=== PATIENT | male | born 1955 | race Two or more races ===

== ENCOUNTER 2018-01-08 11:56 | Inpatient (IN) | payer MEDICAID ==
[2018-01-08] MEDS: LIDOCAINE 1%/EPI 30 ML INJ INJ ×2 (12:46→13:02)
[2018-01-08] MEDS: ONDANSETRON 4 MG INJ IV (13:09)
[2018-01-08] MEDS: ACETAMINOPHEN 325 MG TAB PO (13:09)
[2018-01-08] MEDS: morphine 4 MG/ML VIAL IV (13:09)
[2018-01-08] MEDS: CEFEPIME 2GM/50 ML (PMX) 50 ML IVPB (13:17)
[2018-01-08] MEDS: SODIUM CHLORIDE 0.9% 1L BAG IV* (13:18)
[2018-01-08 13:35] LABS: ADD MAN DIFF? NO
[2018-01-08 13:59] LABS: SYN FLD CRYSTALS NO CRYSTALS SEEN (None seen)
[2018-01-08 14:01] LABS: INR 0.94; PROTIME 12.7 Sec (11.9-14.9)
[2018-01-08 14:02] LABS: PARTIAL THROMBOPLASTIN TIME 26.4 Sec (25.0-35.0)
[2018-01-08 14:03] LABS: SYN FLD CLARITY CLOUDY; SYN FLD COLOR YELLOW
[2018-01-08 14:05] LABS: SYN FLD SOURCE RT KNEE
[2018-01-08] MEDS: VANCOMYCIN 1 GM (PMX) 250 ML IVPB (14:06)
[2018-01-08 14:07] LABS: ALANINE AMINOTRANSFERASE 41 IU/L (13-69); ALBUMIN 3.6 g/dl (3.3-4.9); ALBUMIN/GLOBULIN RATIO 1.16; ALKALINE PHOSPHATASE 116 IU/L (42-121); ANION GAP 13 (8-16); ASPARTATE AMINO TRANSFERASE 19 IU/L (15-46); BILIRUBIN,INDIRECT 1.1 mg/dl (0-1.1); BILIRUBIN,TOTAL 1.1 mg/dl (0.2-1.3); BLOOD UREA NITROGEN 18 mg/dl (7-20); C-REACTIVE PROTEIN 4.5 mg/dl (0.0-0.9); CALCIUM 8.4 mg/dl (8.4-10.2); CARBON DIOXIDE 30 mmol/L (21-31); CHLORIDE 99 mmol/L (97-110); CREATININE 0.99 mg/dl (0.61-1.24); GLUCOSE 162 mg/dl (70-220); SODIUM 138 mmol/L (135-144); TOTAL PROTEIN 6.7 g/dl (6.1-8.1)
[2018-01-08 14:26] LABS: TROPONIN-I < 0.012 ng/ml (0.00-0.12)
[2018-01-08 14:33] LABS: FLUID GLUCOSE 188 mg/dl; FLUID TYPE SYNOVIAL FLUID
[2018-01-08 14:37] LABS: WHITE BLOOD COUNT 15.4 10^3/ul (4.8-10.8)
[2018-01-08 14:37] LABS: BASOPHILS % 0.3 % (0.0-2.0); EOSINOPHILS # 0.3 10^3/ul (0.0-0.5); EOSINOPHILS % 1.8 % (0.0-7.0); HEMATOCRIT 49.1 % (42.0-52.0); HEMOGLOBIN 16.7 g/dl (14.0-18.0); LYMPHOCYTES # 1.4 10^3/ul (0.8-2.9); LYMPHOCYTES % 8.9 % (15.0-51.0); MEAN CORPUSCULAR HEMOGLOBIN 30.7 pg (29.0-33.0); MEAN CORPUSCULAR VOLUME 90.3 fl (82.0-101.0); MEAN PLATELET VOLUME 9.9 fl (7.4-10.4); MONOCYTE # 0.8 10^3/ul (0.3-0.9); MONOCYTES % 5.3 % (0.0-11.0); NEUTROPHIL # 12.8 10^3/ul (1.6-7.5); NEUTROPHILS % 83.2 % (39.0-77.0); PLATELET COUNT 221 10^3/UL (140-415); RED BLOOD COUNT 5.44 10^6/ul (4.70-6.10); RED CELL DISTRIBUTION WIDTH 13.1 % (11.5-14.5)
[2018-01-08 14:54] LABS: ADD UMIC NO; SYN FLD MN % 14.9 &; SYN FLD PMN % 85.1 % (0.0-25.0); SYN FLD WBC 8432 /cmm (0-150); UR ASCORBIC ACID NEGATIVE (NEGATIVE); UR BILIRUBIN (Dip) NEGATIVE (NEGATIVE); UR BLOOD (Dip) NEGATIVE (NEGATIVE); UR CLARITY CLEAR (CLEAR); UR COLOR YELLOW (YELLOW); UR GLUCOSE (Dip) NEGATIVE (NEGATIVE); UR KETONES (Dip) NEGATIVE (NEGATIVE); UR LEUKOCYTE ESTERASE (Dip) NEGATIVE Leu/ul (NEGATIVE); UR NITRITE (Dip) NEGATIVE (NEGATIVE); UR SPECIFIC GRAVITY (Dip) 1.013 (1.003-1.030); UR TOTAL PROTEIN (Dip) NEGATIVE (NEGATIVE); UR UROBILINOGEN (Dip) NEGATIVE (NEGATIVE)
[2018-01-08 14:57] LABS: ERYTHROCYTE SEDIMENTATION RATE 3 mm/Hr (0-20)
[2018-01-08 15:29] LABS: FLUID TOTAL PROTEIN 3.1 g/dl
[2018-01-08] MEDS ORDERED: ACETAMINOPHEN 325 MG TAB PO ×2 (15:30→16:00)
[2018-01-08] MEDS ORDERED: ONDANSETRON 4 MG INJ IV ×2 (15:30→16:00)
[2018-01-08] MEDS ORDERED: NACL 0.9% 3 ML SYG IV (16:00)
[2018-01-08] MEDS ORDERED: BISACODYL 10 MG SUPP PR (16:00)
[2018-01-08] MEDS ORDERED: morphine 2 MG INJ IV (16:00)
[2018-01-08] MEDS ORDERED: MAGNESIUM HYDROXIDE 30ML CUP PO (16:00)
[2018-01-08] MEDS ORDERED: DOCUSATE SODIUM 100 MG CAP PO (16:00)
[2018-01-08] MEDS ORDERED: HYDROCODONE/APAP (5/325) TAB PO (16:00)
[2018-01-08] MEDS ORDERED: VANCOMYCIN IV PER PHARMACY XX (16:30)
[2018-01-08] MEDS ORDERED: morphine LIQ (10 MG/5 ML) CUP PO (16:30)
[2018-01-08 16:47] LABS: URIC ACID 4.6 mg/dl (3.1-7.9)
[2018-01-08 17:39] LABS: LACTIC ACID 1.4 mmol/L (0.5-2.0)
[2018-01-08] MEDS: HYDROCODONE/APAP (5/325) TAB PO (19:49)
[2018-01-09] MEDS: VANCOMYCIN 1.25 GM in SOD CHLORIDE 0.9% 250 ML IVPB ×3 (00:42→23:51)
[2018-01-09] MEDS ORDERED: PANTOPRAZOLE (EC) 40 MG TAB PO (04:48)
[2018-01-09] MEDS: PANTOPRAZOLE (EC) 40 MG TAB PO (05:59)
[2018-01-09 06:10] LABS: ADD MAN DIFF? NO
[2018-01-09 06:19] LABS: WHITE BLOOD COUNT 12.7 10^3/ul (4.8-10.8)
[2018-01-09 06:19] LABS: BASOPHILS % 0.2 % (0.0-2.0); EOSINOPHILS # 0.5 10^3/ul (0.0-0.5); EOSINOPHILS % 3.8 % (0.0-7.0); HEMOGLOBIN 15.6 g/dl (14.0-18.0); LYMPHOCYTES # 1.7 10^3/ul (0.8-2.9); MEAN CORPUSCULAR HEMOGLOBIN 30.6 pg (29.0-33.0); MEAN CORPUSCULAR HGB CONC 33.2 g/dl (32.0-37.0); MEAN CORPUSCULAR VOLUME 92.2 fl (82.0-101.0); MEAN PLATELET VOLUME 10.2 fl (7.4-10.4); MONOCYTE # 0.8 10^3/ul (0.3-0.9); MONOCYTES % 6.6 % (0.0-11.0); NEUTROPHIL # 9.6 10^3/ul (1.6-7.5); NEUTROPHILS % 75.9 % (39.0-77.0); PLATELET COUNT 180 10^3/UL (140-415)
[2018-01-09 06:47] LABS: ANION GAP 13 (8-16); BLOOD UREA NITROGEN 15 mg/dl (7-20); CALCIUM 8.3 mg/dl (8.4-10.2); CARBON DIOXIDE 32 mmol/L (21-31); CHLORIDE 101 mmol/L (97-110); CREATININE 0.98 mg/dl (0.61-1.24); GLUCOSE 141 mg/dl (70-220); MAGNESIUM 2.1 mg/dl (1.7-2.5); PHOSPHORUS 2.7 mg/dl (2.5-4.9); POTASSIUM 4.2 mmol/L (3.5-5.1); SODIUM 142 mmol/L (135-144)
[2018-01-09] MEDS: HYDROCODONE/APAP (5/325) TAB PO ×2 (08:18→15:08)
[2018-01-09] MEDS: CEFTRIAXONE 1 GM/50 ML (PMX) 50 ML IVPB (12:14)
[2018-01-09] MEDS: BETAMET NA PHOS/AC(6 MG/ML) 5ML INJ INJ (21:19)
[2018-01-09] MEDS: BUPIVACAINE 0.5%/EPI (SDV) 30 ML INJ INJ (21:21)
[2018-01-10 05:39] LABS: ADD MAN DIFF? NO
[2018-01-10] MEDS: PANTOPRAZOLE (EC) 40 MG TAB PO (05:41)
[2018-01-10 05:49] LABS: BASOPHILS % 0.1 % (0.0-2.0); HEMATOCRIT 48.8 % (42.0-52.0); HEMOGLOBIN 16.5 g/dl (14.0-18.0); LYMPHOCYTES # 0.6 10^3/ul (0.8-2.9); LYMPHOCYTES % 5.7 % (15.0-51.0); MEAN CORPUSCULAR HEMOGLOBIN 30.8 pg (29.0-33.0); MEAN CORPUSCULAR HGB CONC 33.8 g/dl (32.0-37.0); MONOCYTE # 0.1 10^3/ul (0.3-0.9); MONOCYTES % 1.2 % (0.0-11.0); NEUTROPHILS % 92.4 % (39.0-77.0); PLATELET COUNT 179 10^3/UL (140-415); RED BLOOD COUNT 5.36 10^6/ul (4.70-6.10); RED CELL DISTRIBUTION WIDTH 12.7 % (11.5-14.5)
[2018-01-10 05:49] LABS: WHITE BLOOD COUNT 10.8 10^3/ul (4.8-10.8)
[2018-01-10 05:59] LABS: ANION GAP 14 (8-16); BLOOD UREA NITROGEN 16 mg/dl (7-20); CALCIUM 8.8 mg/dl (8.4-10.2); CARBON DIOXIDE 27 mmol/L (21-31); CHLORIDE 102 mmol/L (97-110); CREATININE 0.91 mg/dl (0.61-1.24); GLUCOSE 251 mg/dl (70-220); MAGNESIUM 2.3 mg/dl (1.7-2.5); PHOSPHORUS 2.2 mg/dl (2.5-4.9); POTASSIUM 4.3 mmol/L (3.5-5.1); SODIUM 139 mmol/L (135-144)
[2018-01-10 12:00] LABS: VANCOMYCIN,TROUGH 7.8 ug/ml (10.0-20.0)
[2018-01-10] MEDS: CEFTRIAXONE 1 GM/50 ML (PMX) 50 ML IVPB (12:32)
[2018-01-10] MEDS: VANCOMYCIN 1.25 GM in SOD CHLORIDE 0.9% 250 ML IVPB (13:38)
[2018-01-11] MEDS: VANCOMYCIN 1.5 GM in SOD CHLORIDE 0.9% 250 ML IVPB ×2 (00:13→12:58)
[2018-01-11] MEDS: PANTOPRAZOLE (EC) 40 MG TAB PO (06:01)
[2018-01-11 06:32] LABS: ADD MAN DIFF? NO
[2018-01-11 06:48] LABS: BASOPHILS % 0.2 % (0.0-2.0); EOSINOPHILS % 0.2 % (0.0-7.0); HEMOGLOBIN 15.4 g/dl (14.0-18.0); LYMPHOCYTES # 1.2 10^3/ul (0.8-2.9); LYMPHOCYTES % 6.9 % (15.0-51.0); MEAN CORPUSCULAR HEMOGLOBIN 30.8 pg (29.0-33.0); MEAN CORPUSCULAR HGB CONC 34.2 g/dl (32.0-37.0); MEAN PLATELET VOLUME 10.7 fl (7.4-10.4); NEUTROPHIL # 14.6 10^3/ul (1.6-7.5); NEUTROPHILS % 86.2 % (39.0-77.0); PLATELET COUNT 195 10^3/UL (140-415); RED CELL DISTRIBUTION WIDTH 12.7 % (11.5-14.5)
[2018-01-11 06:57] LABS: ANION GAP 12 (8-16); BLOOD UREA NITROGEN 19 mg/dl (7-20); CALCIUM 8.7 mg/dl (8.4-10.2); CARBON DIOXIDE 30 mmol/L (21-31); CHLORIDE 104 mmol/L (97-110); CREATININE 0.93 mg/dl (0.61-1.24); GLUCOSE 185 mg/dl (70-220); MAGNESIUM 2.3 mg/dl (1.7-2.5); PHOSPHORUS 2.1 mg/dl (2.5-4.9); POTASSIUM 4.1 mmol/L (3.5-5.1); SODIUM 142 mmol/L (135-144)
[2018-01-11] MEDS: CEFTRIAXONE 1 GM/50 ML (PMX) 50 ML IVPB (12:18)
== END 2018-01-11 18:05 | disposition home or self-care (01) | DRG 565 ==
LOC: FTE 11:56 → PP2 15:25
PROC: 0S9C3ZX Drainage of Right Knee Joint, Percutaneous Approach, Diagnostic (ICD-10-PCS; principal; 2018-01-08)
PROC: 3E0U33Z Introduction of Anti-inflammatory into Joints, Percutaneous Approach (ICD-10-PCS; 2018-01-10)
PROC: 3E0U3BZ Introduction of Anesthetic Agent into Joints, Percutaneous Approach (ICD-10-PCS; 2018-01-10)
DX: M25.461 Effusion, right knee (principal); R65.10 Systemic inflammatory response syndrome (SIRS) of non-infectious origin without acute organ dysfunction; M17.11 Unilateral primary osteoarthritis, right knee; M11.261 Other chondrocalcinosis, right knee; M11.9 Crystal arthropathy, unspecified; R26.9 Unspecified abnormalities of gait and mobility; Z79.1 Long term (current) use of non-steroidal anti-inflammatories (NSAID)
CPT/HCPCS: 36415; 71045; 73562; 73721; 80048; 80053; 80202; 81003; 82945; 83605; 83735; 84100; 84157; 84484; 84560; 85025; 85610; 85651; 85730; 86140; 87040; 87070; 87086; 89060; 93005; 96374; 96375; 97116; 97161; 97530; 99291-25

== ENCOUNTER 2018-03-22 18:57 | Emergency (ER) | payer MEDICAID ==
[2018-03-22] MEDS: ALBUTEROL 0.5% (NEB) 2.5 MG/0.5 ML AMP INH (20:30)
[2018-03-22] MEDS: METHYLPREDNISOLONE 125 MG INJ IV (20:39)
[2018-03-22] MEDS: SOD CHLORIDE 0.9% 1,000 ML IV (20:40)
[2018-03-22 20:51] LABS: ADD MAN DIFF? NO
[2018-03-22 20:54] LABS: WHITE BLOOD COUNT 9.6 10^3/ul (4.8-10.8)
[2018-03-22 20:54] LABS: BASOPHILS % 0.4 % (0.0-2.0); EOSINOPHILS # 0.9 10^3/ul (0.0-0.5); EOSINOPHILS % 8.8 % (0.0-7.0); HEMATOCRIT 48.8 % (42.0-52.0); HEMOGLOBIN 16.5 g/dl (14.0-18.0); LYMPHOCYTES # 1.9 10^3/ul (0.8-2.9); LYMPHOCYTES % 19.7 % (15.0-51.0); MEAN CORPUSCULAR HEMOGLOBIN 30.9 pg (29.0-33.0); MEAN CORPUSCULAR HGB CONC 33.8 g/dl (32.0-37.0); MEAN CORPUSCULAR VOLUME 91.4 fl (82.0-101.0); MEAN PLATELET VOLUME 10.1 fl (7.4-10.4); MONOCYTE # 0.9 10^3/ul (0.3-0.9); MONOCYTES % 8.8 % (0.0-11.0); NEUTROPHILS % 62.1 % (39.0-77.0); PLATELET COUNT 224 10^3/UL (140-415); RED BLOOD COUNT 5.34 10^6/ul (4.70-6.10); RED CELL DISTRIBUTION WIDTH 13.1 % (11.5-14.5)
[2018-03-22 21:23] LABS: ANION GAP 16 (8-16); BLOOD UREA NITROGEN 23 mg/dl (7-20); CALCIUM 9.1 mg/dl (8.4-10.2); CARBON DIOXIDE 27 mmol/L (21-31); CHLORIDE 107 mmol/L (97-110); CREATININE 0.95 mg/dl (0.61-1.24); GLUCOSE 115 mg/dl (70-220); SODIUM 146 mmol/L (135-144)
[2018-03-22 21:35] LABS: TROPONIN-I 0.011 ng/ml (0.000-0.120)
== END 2018-03-22 22:23 | disposition home or self-care (01) ==
LOC: FTE 18:57
DX: J45.901 Unspecified asthma with (acute) exacerbation (principal)
CPT/HCPCS: 71046; 80048; 84484; 85025; 93005; 94644; 96374; 99285-25

== ENCOUNTER 2018-05-27 19:56 | Emergency (ER) | payer MEDICAID ==
[2018-05-27] MEDS: predniSONE 20 MG TAB PO (20:32)
[2018-05-27] MEDS: IPRATROPIUM (NEB) 0.5 MG/2.5 ML AMP NEB (20:41)
[2018-05-27] MEDS: ALBUTEROL 0.083% (NEB) 2.5 MG/3 ML AMP NEB (20:41)
== END 2018-05-27 21:39 | disposition home or self-care (01) ==
LOC: E/R 19:56
DX: J45.901 Unspecified asthma with (acute) exacerbation (principal)
CPT/HCPCS: 71045; 94664; 99283-25

== ENCOUNTER 2018-11-24 08:09 | Inpatient (IN) | payer MEDICAID ==
[2018-11-24] MEDS: IPRATROPIUM (NEB) 0.5 MG/2.5 ML AMP NEB (08:33)
[2018-11-24] MEDS: ALBUTEROL 0.083% (NEB) 2.5 MG/3 ML AMP NEB (08:33)
[2018-11-24 09:06] LABS: ADD MAN DIFF? NO
[2018-11-24 09:09] LABS: BASOPHILS % 0.2 % (0.0-2.0); EOSINOPHILS # 0.6 10^3/ul (0.0-0.5); EOSINOPHILS % 6.9 % (0.0-7.0); HEMATOCRIT 50.5 % (42.0-52.0); LYMPHOCYTES # 1.4 10^3/ul (0.8-2.9); LYMPHOCYTES % 17.2 % (15.0-51.0); MEAN CORPUSCULAR HEMOGLOBIN 30.5 pg (29.0-33.0); MEAN CORPUSCULAR HGB CONC 33.7 g/dl (32.0-37.0); MEAN CORPUSCULAR VOLUME 90.5 fl (82.0-101.0); MEAN PLATELET VOLUME 10.7 fl (7.4-10.4); MONOCYTE # 0.5 10^3/ul (0.3-0.9); MONOCYTES % 6.2 % (0.0-11.0); NEUTROPHIL # 5.6 10^3/ul (1.6-7.5); PLATELET COUNT 170 10^3/UL (140-415); RED BLOOD COUNT 5.58 10^6/ul (4.70-6.10); RED CELL DISTRIBUTION WIDTH 12.8 % (11.5-14.5)
[2018-11-24 09:09] LABS: WHITE BLOOD COUNT 8.1 10^3/ul (4.8-10.8)
[2018-11-24] MEDS: predniSONE 20 MG TAB PO (09:14)
[2018-11-24 09:25] LABS: ANION GAP 9 (5-13); BLOOD UREA NITROGEN 16 mg/dl (7-20); CALCIUM 9.1 mg/dl (8.4-10.2); CARBON DIOXIDE 27 mmol/L (21-31); CHLORIDE 100 mmol/L (97-110); CREATININE 0.78 mg/dl (0.61-1.24); Estimated GFR > 60 mL/min (>60); GLUCOSE 328 mg/dl (70-220); SODIUM 136 mmol/L (135-144)
[2018-11-24] MEDS ORDERED: ACETAMINOPHEN 325 MG TAB PO ×2 (09:30→12:00)
[2018-11-24] MEDS ORDERED: ONDANSETRON 4 MG INJ IV (09:30)
[2018-11-24 09:38] LABS: TROPONIN-I < 0.012 ng/ml (0.000-0.120)
[2018-11-24] MEDS ORDERED: NACL 0.9% 3 ML SYG IV (12:00)
[2018-11-24] MEDS: ALBUTEROL/IPRATROPIUM (NEB) 3 ML AMP HHN ×3 (12:12→21:14)
[2018-11-24] MEDS: METHYLPREDNISOLONE 125 MG INJ IV ×2 (13:18→17:56)
[2018-11-24] MEDS: ENOXAPARIN 40 MG/0.4 ML SYG SC (13:20)
[2018-11-24] MEDS: MAGNESIUM SULFATE 2 GM/50 ML 50 ML IVPB (15:13)
[2018-11-24] MEDS: FLUTICASONE/VILANTEROL 200-25 INH DEVICE INH (15:14)
[2018-11-24] MEDS: INSULIN ASPART [NOVOLOG] 3 ML PEN SC ×3 (18:13→21:24)
[2018-11-24] MEDS: FAMOTIDINE 20 MG TAB PO (21:25)
[2018-11-24] MEDS: MONTELUKAST 10 MG TAB PO (21:25)
[2018-11-25] MEDS: NPH, HUMAN INSULIN ISOPHANE 3ML VIAL SC ×3 (00:31→21:21)
[2018-11-25] MEDS: ACCU-CHEK XX (02:00)
[2018-11-25] MEDS: INSULIN ASPART [NOVOLOG] 3 ML PEN SC ×6 (02:51→22:36)
[2018-11-25 05:29] LABS: ADD MAN DIFF? NO
[2018-11-25 05:32] LABS: WHITE BLOOD COUNT 15.8 10^3/ul (4.8-10.8)
[2018-11-25 05:32] LABS: BASOPHILS % 0.1 % (0.0-2.0); HEMOGLOBIN 16.7 g/dl (14.0-18.0); LYMPHOCYTES # 0.9 10^3/ul (0.8-2.9); LYMPHOCYTES % 5.6 % (15.0-51.0); MEAN CORPUSCULAR HEMOGLOBIN 30.1 pg (29.0-33.0); MEAN CORPUSCULAR HGB CONC 33.4 g/dl (32.0-37.0); MEAN CORPUSCULAR VOLUME 90.3 fl (82.0-101.0); MEAN PLATELET VOLUME 10.3 fl (7.4-10.4); MONOCYTE # 0.1 10^3/ul (0.3-0.9); MONOCYTES % 0.9 % (0.0-11.0); NEUTROPHIL # 14.7 10^3/ul (1.6-7.5); NEUTROPHILS % 92.8 % (39.0-77.0); PLATELET COUNT 197 10^3/UL (140-415); RED BLOOD COUNT 5.54 10^6/ul (4.70-6.10); RED CELL DISTRIBUTION WIDTH 12.6 % (11.5-14.5)
[2018-11-25] MEDS: METHYLPREDNISOLONE 125 MG INJ IV ×3 (06:00)
[2018-11-25 06:02] LABS: ALANINE AMINOTRANSFERASE 22 IU/L (13-69); ALBUMIN 4.2 g/dl (3.3-4.9); ALBUMIN/GLOBULIN RATIO 1.35; ALKALINE PHOSPHATASE 136 IU/L (42-121); ANION GAP 12 (5-13); ASPARTATE AMINO TRANSFERASE 21 IU/L (15-46); BLOOD UREA NITROGEN 18 mg/dl (7-20); CALCIUM 9.7 mg/dl (8.4-10.2); CARBON DIOXIDE 24 mmol/L (21-31); CHLORIDE 102 mmol/L (97-110); CHOL/HDL RATIO 3.5 RATIO; CHOLESTEROL 188 mg/dl (100-200); CREATININE 0.87 mg/dl (0.61-1.24); Estimated GFR > 60 mL/min (>60); GLUCOSE 287 mg/dl (70-220); HDL CHOLESTEROL 53 mg/dl (30-78); LDL CHOLESTEROL,CALCULATED 121 mg/dl; MAGNESIUM 2.4 mg/dl (1.7-2.5); PHOSPHORUS 2.3 mg/dl (2.5-4.9); POTASSIUM 4.4 mmol/L (3.5-5.1); SODIUM 138 mmol/L (135-144); TOTAL PROTEIN 7.3 g/dl (6.1-8.1); TRIGLYCERIDES 69 mg/dl (0-149)
[2018-11-25 06:09] LABS: HEMOGLOBIN A1C 8.6 % (0-5.9)
[2018-11-25] MEDS: ALBUTEROL/IPRATROPIUM (NEB) 3 ML AMP HHN ×5 (07:48→20:43)
[2018-11-25] MEDS: ENOXAPARIN 40 MG/0.4 ML SYG SC (08:45)
[2018-11-25] MEDS: FAMOTIDINE 20 MG TAB PO ×2 (08:45→21:15)
[2018-11-25] MEDS: FLUTICASONE/VILANTEROL 200-25 INH DEVICE INH (08:45)
[2018-11-25] MEDS: METHYLPREDNISOLONE 40 MG INJ IV ×2 (16:46→21:15)
[2018-11-25] MEDS: MONTELUKAST 10 MG TAB PO (21:15)
[2018-11-26] MEDS: ACCU-CHEK XX ×3 (02:00→21:28)
[2018-11-26] MEDS: METHYLPREDNISOLONE 40 MG INJ IV ×3 (06:18→21:18)
[2018-11-26] MEDS: NPH, HUMAN INSULIN ISOPHANE 3ML VIAL SC ×3 (06:18→21:22)
[2018-11-26] MEDS: ALBUTEROL/IPRATROPIUM (NEB) 3 ML AMP HHN ×5 (06:19→20:44)
[2018-11-26] MEDS: INSULIN ASPART [NOVOLOG] 3 ML PEN SC ×4 (08:56→21:21)
[2018-11-26] MEDS: FLUTICASONE/VILANTEROL 200-25 INH DEVICE INH (08:56)
[2018-11-26] MEDS: ENOXAPARIN 40 MG/0.4 ML SYG SC (08:57)
[2018-11-26] MEDS: FAMOTIDINE 20 MG TAB PO ×2 (08:57→21:17)
[2018-11-26] MEDS: metFORMIN 500 MG TAB PO ×2 (12:51→17:54)
[2018-11-26] MEDS: TIOTROPIUM 18 MCG CAPSULE INHA DEV INH (12:53)
[2018-11-26] MEDS: MONTELUKAST 10 MG TAB PO (21:17)
[2018-11-27] MEDS: ACCU-CHEK XX ×5 (01:35→21:27)
[2018-11-27] MEDS: METHYLPREDNISOLONE 40 MG INJ IV (06:10)
[2018-11-27] MEDS: NPH, HUMAN INSULIN ISOPHANE 3ML VIAL SC (06:12)
[2018-11-27] MEDS: ALBUTEROL/IPRATROPIUM (NEB) 3 ML AMP HHN ×4 (07:44→21:10)
[2018-11-27] MEDS: FLUTICASONE/VILANTEROL 200-25 INH DEVICE INH (08:35)
[2018-11-27] MEDS: FAMOTIDINE 20 MG TAB PO ×2 (08:35→20:27)
[2018-11-27] MEDS: metFORMIN 500 MG TAB PO ×2 (08:35→17:39)
[2018-11-27] MEDS: TIOTROPIUM 18 MCG CAPSULE INHA DEV INH (08:35)
[2018-11-27] MEDS: INSULIN ASPART [NOVOLOG] 3 ML PEN SC ×6 (08:37→20:25)
[2018-11-27] MEDS: ENOXAPARIN 40 MG/0.4 ML SYG SC (08:38)
[2018-11-27] MEDS ORDERED: metFORMIN 500 MG TAB PO (11:30)
[2018-11-27] MEDS: INSULIN GLARGINE [LANTus] (100 UNITS/ML) SYG SC (13:05)
[2018-11-27] MEDS: MONTELUKAST 10 MG TAB PO (20:26)
[2018-11-27] MEDS: predniSONE 20 MG TAB PO (20:26)
[2018-11-28] MEDS: ACCU-CHEK XX ×3 (02:10→12:30)
[2018-11-28] MEDS: ALBUTEROL/IPRATROPIUM (NEB) 3 ML AMP HHN (08:35)
[2018-11-28] MEDS: FAMOTIDINE 20 MG TAB PO (08:50)
[2018-11-28] MEDS: predniSONE 20 MG TAB PO (08:50)
[2018-11-28] MEDS: metFORMIN 500 MG TAB PO (08:51)
[2018-11-28] MEDS: TIOTROPIUM 18 MCG CAPSULE INHA DEV INH (08:51)
[2018-11-28] MEDS: INSULIN ASPART [NOVOLOG] 3 ML PEN SC ×4 (08:54→12:30)
[2018-11-28] MEDS: FLUTICASONE/VILANTEROL 200-25 INH DEVICE INH (08:56)
[2018-11-28] MEDS: INSULIN GLARGINE [LANTus] (100 UNITS/ML) SYG SC (08:56)
[2018-11-28] MEDS: ENOXAPARIN 40 MG/0.4 ML SYG SC (09:00)
== END 2018-11-28 12:58 | disposition home or self-care (01) | DRG 203 ==
LOC: E/R 08:09 → MS1 10:51
DX: J45.51 Severe persistent asthma with (acute) exacerbation (principal); J45.52 Severe persistent asthma with status asthmaticus; E11.65 Type 2 diabetes mellitus with hyperglycemia; Z87.891 Personal history of nicotine dependence; E66.9 Obesity, unspecified
CPT/HCPCS: 36415; 71045; 80048; 80053; 80061; 82962; 83036; 83735; 84100; 84443; 84484; 85025; 87400; 93005; 93306; 94640; 94664; 99285-25

== ENCOUNTER 2019-04-25 07:28 | Emergency (ER) | payer MEDICAID ==
[2019-04-25] MEDS: traMADol-APAP 37.5-325 1 TAB PO (08:01)
[2019-04-25] MEDS: KETOROLAC 60 MG INJ IM (08:03)
== END 2019-04-25 08:22 | disposition home or self-care (01) ==
LOC: FTE 07:28
DX: M65.4 Radial styloid tenosynovitis [de Quervain] (principal); J45.909 Unspecified asthma, uncomplicated; E11.9 Type 2 diabetes mellitus without complications; Z79.84 Long term (current) use of oral hypoglycemic drugs
CPT/HCPCS: 29125; 96372; 99284-25